=== PATIENT | male | born 1995 ===

== ENCOUNTER 2019-07-15 08:01 | Outpatient (CLI) | payer BC, SELFPAY ==
[2019-07-16 14:18] LABS: COVID-19 RT-PCR UVMMC Result Negative (Negative)
== END 2019-07-15 08:21 ==
PROVIDERS: Visit Provider Family Medicine
DX: Z11.59 Encounter for screening for other viral diseases (principal); Z01.818 Encounter for other preprocedural examination
CPT/HCPCS: U0003

== ENCOUNTER 2020-04-06 10:43 | Outpatient (CLI) | payer OTHER, SELFPAY ==
--- NOTE | 2020-04-06 09:22 | DI.RAD_ITS ---
EXAM: XR HAND RT LIMITED CLINICAL HISTORY: RT LITTLE FINGER FX [id number]. TECHNIQUE: 2D digital imaging was performed. COMPARISON: No exams were available for comparison FINDINGS: BONES: No acute fracture is present. There is deformity of the head of the 5th metacarpal which appe ars chronic and may reflect an old healed fracture. No bony destructive lesion is seen. JOINTS: No dislocation present. SOFT TISSUE: Normal. IMPRESSION: No acute fracture or dislocation. DATA REPOSITORY: RADIATION DOSE DELIVERED:
[2020-04-06 10:34] LABS: Calcium 9.2 mg/dL (8.5-10.1)
== END 2020-04-06 11:03 ==
PROVIDERS: Visit Provider Orthopaedic Surgery
DX: S62.606A Fracture of unspecified phalanx of right little finger, initial encounter for closed fracture (principal)
CPT/HCPCS: 36415; 73120; 82310